=== PATIENT | female | born 1955 | race Caucasian/White ===

== ENCOUNTER 2018-05-10 07:32 | Day surgery (SDC) | payer OTHER ==
[~2018-05-10 07:32] MED LIST: CALCA500CH PO; MULVITMIND PO
== END 2018-05-10 23:06 | disposition home or self-care (01) ==
LOC: MOI US 07:32
DX: N63.10 Unspecified lump in the right breast, unspecified quadrant (principal)
CPT/HCPCS: 19083; 77065; 88305; A4648

== ENCOUNTER 2022-08-15 08:30 | Day surgery (SDC) | payer OTHER ==
[~2022-08-15] VITALS: Ht 154.9 cm; Wt 54.6 kg
[2022-08-15] MEDS ORDERED: ALPR.25 (08:53)
[2022-08-15] MEDS ORDERED: ZOLEDRONIC ACID4 M1 (08:54)
[2022-08-15] MEDS ORDERED: ANAS1 (08:54)
--- NOTE | 2022-08-15 09:20 | NUR ---
08/15/22 0920 ARVIN RAPHAEL PT DID SUTAB FOR BOWEL PREP.
[2022-08-15 10:08] VITALS: BP 114/64
== END 2022-08-15 10:22 | disposition home or self-care (01) ==
LOC: ORSCSDS 08:30
PROVIDERS: Surgery
PROC: 0DJD8ZZ Inspection of Lower Intestinal Tract, Via Natural or Artificial Opening Endoscopic (ICD-10-PCS; principal; 2022-08-15 09:45)
DX: Z12.11 Encounter for screening for malignant neoplasm of colon (principal); E78.5 Hyperlipidemia, unspecified; Z79.899 Other long term (current) drug therapy
CPT/HCPCS: J2704; J7120

== ENCOUNTER 2023-01-19 13:46 | Emergency (ER) | payer OTHER ==
[~2023-01-19] VITALS: Ht 157.5 cm; Wt 52.2 kg
[~2023-01-19 13:46] MED LIST changes: +ALPR.25; +ANAS1; +ZOLEDRONIC ACID4 M1
[2023-01-19 13:58] VITALS: BP 203/100
[2023-01-19] MEDS ORDERED: ANASTROZOLE1 M7 PO (14:13)
[2023-01-19] MEDS ORDERED: Norco 5-325 Ta1 EACH PO (14:58)
== END 2023-01-19 15:06 | disposition home or self-care (01) ==
LOC: ER 13:46
DX: S42.021A Displaced fracture of shaft of right clavicle, initial encounter for closed fracture (principal); X50.0XXA Overexertion from strenuous movement or load, initial encounter; Z91.040 Latex allergy status
CPT/HCPCS: 73000; 99283-25